=== PATIENT | male | born 1945 | race African-American/Black ===

== ENCOUNTER 2022-11-11 16:52 | Emergency (ER) | payer MEDICARE ==
[~2022-11-11] VITALS: Ht 170.2 cm; Wt 80.0 kg
[~2022-11-11 16:52] MED LIST: ATOR80TA PO; BACL-141 PO; CLON1PAT11 TP; FAMO-135 PO; FERR-71 PO; FLUO20CA33 PO; GABA300C PO; GLIP5TAB12 PO; LAMO100T65 PO; LIDO120C7 TP; LIDO700A30 TP; LISI10TA26 PO; METO-396 PO; OXYB5TAB17 PO; PRED1TAB PO; SULF1TAB47 PO; [UNRECOGNIZED DRUG - CODE] PO
[2022-11-11 16:59] VITALS: BP 165/73; PULSE 66; RESP 16; TEMP 98.7; O2SAT 100
[2022-11-11 18:08] LABS: BASOPHILS % 0.2 % (0.0-2.0); EOSINOPHILS % 2.3 % (0.0-5.0); HEMOGLOBIN. 11.8 g/dL (14.0-18.0); LYMPHOCYTES % 20.1 % (20.0-50.0); MEAN CORPUSCULAR HEMOGLOBIN 32.7 pg (28.0-32.0); MEAN CORPUSCULAR HGB CONC 33.7 g/dL (31.0-37.0); MEAN CORPUSCULAR VOLUME 97.3 fL (80.0-94.0); MEAN PLATELET VOLUME 7.6 fl (7.4-10.4); NEUTROPHILS % 66.4 % (40.0-76.0); PLATELET 251 x1000/uL (130-400); RED BLOOD CELL COUNT 3.59 mill/uL (4.7-6.1); RED CELL DISTRIBUTION WIDTH 14.2 % (11.6-14.6); WHITE BLOOD COUNT 8.9 x1000/uL (4.5-11.0)
[2022-11-11 18:20] LABS: INDEX HEMOLYSI 1 (1-3); INDEX ICTERIC 1 (1-4); INDEX LIPEMIC 1 (1-3)
[2022-11-11 18:29] LABS: ALANINE AMINOTRANSFERASE 55 IU/L (13-61); ALBUMIN 3.8 g/dL (3.4-5.0); ASPARTATE AMINOTRANSFERASE 28 IU/L (15-37); BILIRUBIN TOTAL 0.5 mg/dL (0.1-1.0); CALCIUM 8.9 mg/dL (8.5-10.1); CARBON DIOXIDE 25 mEq/L (21-32); CHLORIDE 105 mEq/L (98-107); CREATININE 1.6 mg/dL (0.6-1.3); GLUCOSE 135 mg/dL (70-105); POTASSIUM 4.5 mEq/L (3.5-5.1); PROTEIN TOTAL 7.5 g/dL (6.0-8.3); SODIUM 135 mEq/L (136-145); TROPONIN I HIGH SENSITIVITY 14 ng/L (<78); UREA NITROGEN BLOOD 20 mg/dL (7-21)
== END 2022-11-11 20:31 | disposition left against medical advice (07) ==
LOC: ER 16:52 → EDBEDREQ 19:27 → ER 20:31
DX: R53.1 Weakness (principal); R47.81 Slurred speech; E11.9 Type 2 diabetes mellitus without complications; E78.00 Pure hypercholesterolemia, unspecified; I10 Essential (primary) hypertension; Z86.73 Personal history of transient ischemic attack (TIA), and cerebral infarction without residual deficits
CPT/HCPCS: 36415; 80053; 84484; 85025; 93005; 99284